=== PATIENT | female | born 1950 | race Caucasian/White ===

== ENCOUNTER → 2017-08-15 | Outpatient (CLI) | payer MEDICARE, MEDICAID ==
--- NOTE | 2017-08-15 12:39 | RAD ---
CT of the chest without contrast, 08/15/2017: History: COPD, smoking history-40 years, current smoker Noncontrast scans were obtained utilizing a low-dose technique. There are multiple small subpleural blebs, particularly in the pulmonary apices. There are a few scattered linear parenchymal scars, including the inferior lingular region on the left. A small parenchymal opacity with a dense central calcification is present posteriorly in the left lower lobe. The appearance is that of a partially calcified scar due to old granulomatous disease. There is also a small calcified granuloma posteriorly in the right upper lobe. No noncalcified pulmonary mass or significant consolidation is seen. There is no evidence of pleural fluid. There is moderate calcific plaquing of the thoracic aorta without evidence of aortic aneurysm. Several coronary artery calcifications are noted. The heart is of normal size. No mediastinal adenopathy is evident. There is an 8 mm nonspecific low-density lesion in the left lobe of the thyroid gland. The right lobe of the thyroid gland is surgically absent. There are mild scattered degenerative changes in the spine. IMPRESSION: 1. Mild scattered subpleural blebs and parenchymal scars. 2. Old healed granulomatous disease in the chest. 3. Calcific plaquing of the aorta and coronary arteries. 4. Small nonspecific left thyroid nodule. 5. Lung BI-RADS Category 1-negative. Routine annual follow-up is suggested. PQRS Compliance Statement: One or more of the following individualized dose reduction techniques were utilized for this examination: 1. Automated exposure control 2. Adjustment of the mA and/or kV according to patient size 3. Use of iterative reconstruction technique
--- NOTE | 2017-08-15 14:42 | RAD ---
DATE: 08/15/2017 EXAM: MAMMO MORENO SCREENING BILATERAL HISTORY: Routine screening COMPARISON: 11/14/2015 This study was interpreted with the benefit of Computerized Aided Detection (CAD). The breast parenchyma is primarily fatty replaced. Breast parenchyma level density A. FINDINGS: 2-D and 3-D tomosynthesis imaging was performed in CC and MLO projections. No new or enlarging breast densities are seen. Benign type calcifications are present. No suspicious microcalcifications have developed. IMPRESSION: Stable mammograms without evidence of malignancy. BI-RADS CATEGORY: 2 BENIGN FINDING(S) RECOMMENDED FOLLOW-UP: 12M 12 MONTH FOLLOW-UP PQRS compliance statement: Patient information was entered into a reminder system with a target due date for the next mammogram. Mammography is a sensitive method for finding small breast cancers, but it does not detect them all and is not a substitute for careful clinical examination. A negative mammogram does not negate a clinically suspicious finding and should not result in delay in biopsying a clinically suspicious abnormality. "Our facility is accredited by the [employer] Mammography Program."
== END | disposition home or self-care (01) ==
LOC: CT 10:40
PROVIDERS: ATTEND Nurse Practitioner Family
DX: Z12.31 Encounter for screening mammogram for malignant neoplasm of breast (principal); J84.10 Pulmonary fibrosis, unspecified; J98.4 Other disorders of lung; I25.10 Atherosclerotic heart disease of native coronary artery without angina pectoris; I70.0 Atherosclerosis of aorta; J44.9 Chronic obstructive pulmonary disease, unspecified; E07.89 Other specified disorders of thyroid; M47.899 Other spondylosis, site unspecified; F17.200 Nicotine dependence, unspecified, uncomplicated; Z90.89 Acquired absence of other organs
CPT/HCPCS: 71250; 77063; G0202; 77067

== ENCOUNTER → 2017-09-02 | Outpatient (CLI) | payer MEDICARE, MEDICAID ==
--- NOTE | 2017-09-02 09:03 | RAD ---
Thyroid ultrasound 09/02/2017 Clinical indication: Thyroid nodule seen on recent CT chest and neck. History of right thyroidectomy approximately 20 years ago. Comparison: CT chest 08/15/2017 Findings: Post surgical changes of prior right hemithyroidectomy. The left lobe of the thyroid measures 4.5 x 1.4 x 1.3 cm. Multiple hypoechoic left thyroid nodules. Dominant discrete hypoechoic nodule measures 0.9 x 0.8 x 0.6 with internal blood flow. Additional hypoechoic thyroid nodule at the mid aspect medially adjacent to the previously described nodule measuring 0.8 x 0.7 x 0.6 cm. There are a few additional subcentimeter hypoechoic nodules in the left lobe. Impression: 1. Prior right hemithyroidectomy. 2. Multiple small hypoechoic left thyroid nodules, largest measuring 0.9 cm, indeterminate. Follow-up thyroid ultrasound in 12 months is recommended.
== END | disposition home or self-care (01) ==
LOC: US 07:43
PROVIDERS: ATTEND Surgery
DX: E04.2 Nontoxic multinodular goiter (principal); E89.0 Postprocedural hypothyroidism
CPT/HCPCS: 76536

== ENCOUNTER → 2017-10-07 | Outpatient (CLI) | payer MEDICARE, OTHER ==
--- NOTE | 2017-10-07 10:40 | RAD ---
Indication: Fall. Time of exam 10:12 AM There appears to be nondisplaced fractures involving the left lateral fifth and sixth ribs. Age of these are indeterminate. No displaced rib fracture is seen. No parenchymal contusion, effusion or pneumothorax is seen. Impression: Age-indeterminate nondisplaced left fifth and sixth rib fractures.
== END | disposition home or self-care (01) ==
LOC: PMG 09:55
PROVIDERS: ATTEND Physician Assistant
DX: S22.42XA Multiple fractures of ribs, left side, initial encounter for closed fracture (principal); W19.XXXA Unspecified fall, initial encounter; Y93.89 Activity, other specified; Y92.89 Other specified places as the place of occurrence of the external cause; Y99.8 Other external cause status
CPT/HCPCS: 71101

== ENCOUNTER 2018-09-07 17:14 | Inpatient (IN) | payer MEDICARE, MEDICAID ==
[~2018-09-07] VITALS: Ht 167.6 cm; Wt 78.6 kg
[2018-09-07] MEDS ORDERED: ASPIRIN 81 MG TAB.CHEW ONE (17:54)
--- NOTE | 2018-09-07 17:54 | RAD ---
CT CODE STROKE HEAD WO Date: 09/07/2018 5:16 PM Clinical Indication: CODE STROKE. PT HAD WEKANESS, BILATERAL BOTH LEGS AT NOON. NUMBNESS IN RIGHT ARM. UNSTEADY GAIT. Comparison: None. Technique: 5 mm axial tomographic images were obtained of the head without contrast. These were viewed on brain and bone windows. Findings: Mild generalized cerebral and cerebellar volume loss. Mild nonspecific periventricular hypoattenuation, most commonly seen with chronic small vessel ischemic disease. Remote appearing right internal capsular lacunar type infarct. No intra- or extra-axial mass or fluid collection. No acute hemorrhage. The ventricles are normal in size, shape, and morphology. The ang-white matter junction is normal. The basilar cisterns are patent. The visualized paranasal sinuses are normal. The visualized portions of the orbits and globes are normal. The mastoid air cells are clear. No aggressive osseous lesion or fracture. Impression: 1. No acute intracranial process. Of note, MRI is more sensitive for acute infarction less than 24 hours in age. 2. Mild cerebral volume loss. Mild chronic small vessel ischemic disease. Remote appearing right internal capsular lacunar type infarct. The findings were reported to CEZAR EDEN at 09/07/2018 5:49 PM. FOR INTERNAL CODING PURPOSES RESULT CODE: (C) PQRS Compliance Statement: One or more of the following individualized dose reduction techniques were utilized for this examination: 1. Automated exposure control 2. Adjustment of the mA and/or kV according to patient size 3. Use of iterative reconstruction technique Electronically signed by: López Caballero MD (09/07/2018 5:51 PM) [facility]
--- NOTE | 2018-09-07 17:57 | PHYS DOC ---
Adult General Chief Complaint Chief Complaint: WEAKNESS/GENERALIZED HPI HPI Patient is a 68-year-old female who presents with complaint of dizziness that started at about 12:00 noon today. She indicates that initially the symptoms were almost like she felt like she was spinning but shortly the dizziness changed and she just characterizes it as if she is completely off balance. She indicates that the dizziness had continued while she had gone to the store earlier today and after she had gotten home. She states that about an hour ago she had developed numbness to her right arm and she was going to try to call 911 but was not able to coordinate movement with her hand because she had lost complete sensation to her hand. She states that she had to dial 911 with her left hand. Upon arrival, patient states that the numbness in her right hand has resolved. Review of Systems Review of Systems Constitutional: Denies fever or chills [] Eyes: Denies change in visual acuity, redness, or eye pain [] Respiratory: Denies cough or shortness of breath [] Cardiovascular: No additional information not addressed in HPI [] Neurologic: Denies headache. Complains of dizziness and right arm numbness. [] All other systems were reviewed and found to be within normal limits, except as documented in this note. Physical Exam Physical Exam Constitutional: Well developed, well nourished, no acute distress, non-toxic appearance. [] HENT: Normocephalic, atraumatic, bilateral external ears normal, oropharynx moist, no oral exudates, nose normal. [] Eyes: PERRLA, EOMI, conjunctiva normal, no discharge. [] Neck: Normal range of motion, no tenderness, supple. There are bilateral carotid bruits. [] Cardiovascular: Regular rate and rhythm.[] Lungs & Thorax: Bilateral breath sounds clear to auscultation [] Abdomen: Bowel sounds normal, soft, no tenderness. [] Skin: Warm, dry, no erythema, no rash. [] Extremities: No tenderness, no cyanosis, no clubbing, ROM intact, no edema. [] Neurologic: Alert and oriented X 3, normal motor function, normal sensory function, no focal deficits noted. [] EKG EKG [] Radiology/Procedures Radiology/Procedures [] Impressions: CT CODE STROKE HEAD WO Date: 09/07/2018 5:16 PM Clinical Indication: CODE STROKE. PT HAD WEKANESS, BILATERAL BOTH LEGS AT NOON. NUMBNESS IN RIGHT ARM. UNSTEADY GAIT. Comparison: None. Technique: 5 mm axial tomographic images were obtained of the head without contrast. These were viewed on brain and bone windows. Findings: Mild generalized cerebral and cerebellar volume loss. Mild nonspecific periventricular hypoattenuation, most commonly seen with chronic small vessel ischemic disease. Remote appearing right internal capsular lacunar type infarct. No intra- or extra-axial mass or fluid collection. No acute hemorrhage. The ventricles are normal in size, shape, and morphology. The ang-white matter junction is normal. The basilar cisterns are patent. The visualized paranasal sinuses are normal. The visualized portions of the orbits and globes are normal. The mastoid air cells are clear. No aggressive osseous lesion or fracture. Impression: 1. No acute intracranial process. Of note, MRI is more sensitive for acute infarction less than 24 hours in age. 2. Mild cerebral volume loss. Mild chronic small vessel ischemic disease. Remote appearing right internal capsular lacunar type infarct. The findings were reported to CEZAR EDEN at 09/07/2018 5:49 PM. Course & Med Decision Making Course & Med Decision Making Pertinent Labs and Imaging studies reviewed. (See chart for details) Patient evaluated by ER medical staff after arriving back from CT for code stroke. Blood work was drawn an IV established. Dr. Cohen was contacted as well as Dr. Kurtz and they have requested CT angiogram of the head and neck prior to admission. Patient was given 325 mg aspirin by mouth. Dragon Disclaimer Dragon Disclaimer This electronic medical record was generated, in whole or in part, using a voice recognition dictation system. Departure Departure: Impression: Primary Impression: CVA (cerebral vascular accident) Disposition: 09 ADMITTED INPATIENT Admitting Physician: Laura Kurtz Condition: GOOD Referrals: DANIELITO MAR (PCP) Problem Qualifiers Primary Impression: CVA (cerebral vascular accident) CVA mechanism: unspecified Qualified Codes: I63.9 - Cerebral infarction, unspecified CEZAR EDEN Jr. DO Sep 07, 2018 17:57
[2018-09-07] MEDS ORDERED: ASPIRIN 325 MG TABLET PO ONE (18:00)
[2018-09-07 18:45] LABS: BASO # 0.1 x10^3/uL (0.0-0.2); BASO % 1 % (0-3); EOS # 0.1 x10^3/uL (0.0-0.7); EOS % 2 % (0-3); HEMATOCRIT 41.5 % (36.0-47.0); HEMOGLOBIN 14.1 g/dL (12.0-15.5); LYMPH # 1.5 x10^3/uL (1.0-4.8); LYMPH % 18 % (24-48); MEAN CORPUSCULAR HEMOGLOBIN 31 pg (25-35); MEAN CORPUSCULAR HGB CONC 34 g/dL (31-37); MEAN CORPUSCULAR VOLUME 92 fL (79-100); MONO # 0.8 x10^3/uL (0.0-1.1); MONO % 10 % (0-9); NEUT # 5.8 x10^3uL (1.8-7.7); NEUT % 69 % (31-73); PLATELET COUNT 260 x10^3/uL (140-400); RED BLOOD COUNT 4.51 x10^6/uL (3.50-5.40); RED CELL DISTRIBUTION WIDTH 13.4 % (11.5-14.5); WHITE BLOOD COUNT 8.3 x10^3/uL (4.0-11.0)
[2018-09-07 18:55] LABS: ALBUMIN 3.3 g/dL (3.4-5.0); ALBUMIN/GLOBULIN RATIO 0.9 (1.0-1.7); CALCIUM 8.7 mg/dL (8.5-10.1); CREATININE 0.9 mg/dL (0.6-1.0); GFR 62.5; POTASSIUM 3.6 mmol/L (3.5-5.1); TOTAL BILIRUBIN 0.3 mg/dL (0.2-1.0); TOTAL PROTEIN 7.1 g/dL (6.4-8.2)
[2018-09-07] MEDS: IV NORMAL SALINE 1,000ML 1,000 ML IV SCH (19:08)
[2018-09-07] MEDS ORDERED: CONTRAST GIVEN MC PRN (19:15)
[2018-09-07] MEDS ORDERED: IOHEXOL 300 MG/ML 75 ML VIAL. IV ONE (19:30)
--- NOTE | 2018-09-07 21:09 | RAD ---
EXAM: CT angiogram of the head and neck with contrast. DATE: 09/07/2018 8:05 PM INDICATION: Possible stroke (suspect cerebellar/posterior infarct), dizziness, headache, arm tingling TECHNIQUE: Axial CTA angiogram of the head and neck was obtained after IV bolus administration of 75 mL Omni 300. MIP Coronal and sagittal reconstructions. Angio package applied including multiplanar reformat reconstructions and 3-D MIP reconstructions. Shaded surface display of 3-D reconstructions also performed. These are all manipulated at separate CT workstation and transferred to the PACS workstation where they are reviewed. COMPARISON: CT head same day, CTA neck dated 10/23/2012. FINDINGS: CTA HEAD: Mild atherosclerosis of the cavernous segments of the bilateral ICAs. The visualized distal internal carotid arteries, anterior and middle cerebral arteries are patent and normal caliber. The distal vertebral arteries, basilar artery, and posterior cerebral arteries are patent and normal caliber. No aneurysm or arteriovenous malformation is seen. The brain parenchyma is normal in attenuation. No intra- or extra-axial mass or fluid collection. No hyperdense intracranial hemorrhage. The ventricles are normal in size and configuration without midline shift. There is normal ang-white matter differentiation. The basal cisterns are patent. The visualized paranasal sinuses are well aerated. The mastoid air cells are clear. The visualized portions of the orbits are normal. No aggressive osseous lesion or fracture. CTA NECK: Right carotid: The right common carotid artery is patent and normal caliber. Mild atherosclerosis at the carotid bulb. No stenosis of the right internal carotid artery per NASCET criteria. The right external carotid artery is patent. Left carotid: The left common carotid artery is patent and normal caliber. Mild atherosclerosis at the carotid bulb. No stenosis of the left internal carotid artery per NASCET criteria. The left external carotid artery is patent. Right vertebral: The right vertebral artery is patent and normal caliber. Left vertebral: The left vertebral artery is patent and normal caliber. Moderate atherosclerosis of the thoracic aorta and its branches. Occlusion of the left subclavian artery just past its origin. The more distal left subclavian artery appears to fill likely via retrograde circulation from the left vertebral artery, although venous bolus streak artifact limits evaluation of the left subclavian and axillary artery. No cervical lymphadenopathy. 0.5 cm left thyroid hypoattenuating lesion. The right lobe of the thyroid appears to be surgically absent. The parotid and submandibular glands are normal. The visualized aerodigestive tract is unremarkable. Moderate multilevel degenerative changes of the visualized spine. Mild paraseptal emphysema. IMPRESSION: 1. No aneurysm. No intracranial arterial stenosis or occlusion. 2. No stenosis of the cervical carotid or vertebral arteries. 3. Occlusion of the left subclavian artery just past its origin. The more distal left subclavian artery appears to fill likely via retrograde circulation from the left vertebral artery (subclavian steal phenomenon). Of note, the proximal left subclavian artery was not occluded on 10/23/2012 CTA neck. Confirmation of directional flow could be obtained with a carotid/neck ultrasound. 4. 0.5 cm left thyroid hypoattenuating lesion may relate to small nodule or cyst. This could be further evaluated with a nonemergent thyroid ultrasound if not previously obtained. PQRS Compliance Statement - Stenosis calculations for CT, MR and conventional angiography are based upon measurement of the distal ICA diameter in accordance with the NASCET methodology. Stenosis calculations for carotid ultrasound studies are derived from validated velocity criteria which are known to correlate with the NASCET methodology. PQRS Compliance Statement: One or more of the following individualized dose reduction techniques were utilized for this examination: 1. Automated exposure control 2. Adjustment of the mA and/or kV according to patient size 3. Use of iterative reconstruction technique Electronically signed by: López Caballero MD (09/07/2018 9:06 PM) [facility]
[2018-09-07 22:08] VITALS: BP 171/97
--- NOTE | 2018-09-07 23:21 | EKG ---
[address] [address] Test Date: 2018-09-07 Test Time: 18:15:27 Pat Name: DIANE FELDER Department: Room: 123 A Gender: F [employer]ling [employer] We[employer] Packer: : 1950 Requested By: CEZAR EDEN Order Number: [id number] Reading MD: Cristiano Newman Measurements Intervals [place] Rate: 75 P: 60 WI: 158 QRS: 7 QRSD: 74 T: 28 QT: 356 QTc: 400 Interpretive Statements SINUS RHYTHM LEFT ATRIAL ABNORMALITY Electronically Signed On 09-11-2018 10:54:39 [employer] SPECIALIST by Cristiano Newman
[2018-09-07] MEDS ORDERED: ALBU2.5V8 IH (23:28)
[2018-09-07] MEDS ORDERED: ERGO500027 PO (23:28)
[2018-09-07] MEDS ORDERED: DULO60CA44 PO (23:28)
[2018-09-07] MEDS ORDERED: LEVO50TA5 PO (23:28)
[2018-09-07] MEDS ORDERED: BUDE10.2 IH (23:28)
[2018-09-07] MEDS ORDERED: LISI-334 PO (23:28)
[2018-09-07] MEDS ORDERED: GABA300C8 PO (23:28)
[2018-09-08] MEDS: IV NORMAL SALINE 1,000ML 1,000 ML IV SCH (00:48)
[2018-09-08 05:51] VITALS: BP 166/83
[2018-09-08] MEDS ORDERED: ALBUTEROL SULFATE 8GM INHALER. IH PRN (06:45)
[2018-09-08] MEDS ORDERED: ALBUTEROL SULFATE 2.5 MG/3 ML NEBU. NEB PRN (07:00)
[2018-09-08] MEDS ORDERED: LEVOTHYROXINE 50 MCG TABLET PO SCH (07:00)
[2018-09-08 07:15] LABS: BASO # 0.1 x10^3/uL (0.0-0.2); BASO % 1 % (0-3); EOS # 0.2 x10^3/uL (0.0-0.7); EOS % 3 % (0-3); HEMATOCRIT 40.5 % (36.0-47.0); HEMOGLOBIN 13.5 g/dL (12.0-15.5); LYMPH # 1.5 x10^3/uL (1.0-4.8); LYMPH % 22 % (24-48); MEAN CORPUSCULAR HEMOGLOBIN 31 pg (25-35); MEAN CORPUSCULAR HGB CONC 33 g/dL (31-37); MEAN CORPUSCULAR VOLUME 92 fL (79-100); MONO # 0.7 x10^3/uL (0.0-1.1); MONO % 10 % (0-9); NEUT # 4.7 x10^3uL (1.8-7.7); NEUT % 65 % (31-73); PLATELET COUNT 243 x10^3/uL (140-400); RED BLOOD COUNT 4.39 x10^6/uL (3.50-5.40); RED CELL DISTRIBUTION WIDTH 13.2 % (11.5-14.5); WHITE BLOOD COUNT 7.2 x10^3/uL (4.0-11.0)
[2018-09-08 07:23] LABS: CALCIUM 8.5 mg/dL (8.5-10.1); CREATININE 0.7 mg/dL (0.6-1.0); GFR 83.5; POTASSIUM 3.9 mmol/L (3.5-5.1)
[2018-09-08] MEDS ORDERED: BUDESONIDE 0.5 MG/2 ML NEBU NEB SCH (08:00)
[2018-09-08] MEDS ORDERED: ALBUTEROL SULFATE 2.5 MG/3 ML NEBU. NEB SCH (08:00)
[2018-09-08] MEDS ORDERED: ASPIRIN ENTERIC COATED 81 MG TABLET.DR. PO SCH (08:00)
[2018-09-08] MEDS ORDERED: GABAPENTIN 300 MG CAPSULE. PO SCH (09:00)
[2018-09-08] MEDS ORDERED: LISINOPRIL 20 MG TABLET PO SCH (09:00)
[2018-09-08] MEDS ORDERED: DULoxetine HCL 60 MG CAPSULE.DR PO SCH (09:00)
[2018-09-08] MEDS ORDERED: CHOLECALCIFEROL (VITAMIN D3) 50,000 UNIT CAPSULE PO SCH (09:00)
[2018-09-08] MEDS ORDERED: NON FORMULARY ITEM (Budesonide/Formoterol Fumarate (Symbicort 160-4.5 Mcg Inhaler) 2 PUFF) IH SCH (09:00)
[2018-09-08 11:50] VITALS: BP 158/70
--- NOTE | 2018-09-08 12:19 | SSS ---
ADMIT DATE: 09/08/2018 HISTORY OF PRESENT ILLNESS: The patient is a 68-year-old female patient, who came to the Emergency Room with a complaint that she has started complaining of dizziness that started around 12:00 noon yesterday. She indicated that initially her symptoms were almost like she felt like she was spinning and shortly thereafter the dizziness changed. She just characterized it as if she is completely off balance. She indicates that the dizziness had continued while she had gone to the store earlier today and after getting home she states that she that about an hour before she arrived to the Emergency Room she had developed numbness to her right arm and she was going to try to call 911, but was not able to coordinate movement with her hand because she had lost complete sensation to her hand. She said she dialed 911 using her left hand and on arrival the patient stated that numbness of her right hand has resolved. She was extensively investigated in the Emergency Room and she has had CT scan of the head, which basically showed no acute intracranial process, mild cerebral volume loss, mild chronic small vessel ischemic disease and remote appearing right internal capsular lacunar type infarct. She was out of the window for TPA and she did have a CT angio of the head and neck and impressions showed that she has no aneurysm, no intracranial arterial stenosis or occlusion, no stenosis of the cervical, carotid or vertebral arteries, occlusion of the left subclavian artery, just in origin. The more distal left subclavian artery appears to fill likely via retrograde circulation from the left vertebral artery. She probably has subclavian steal syndrome. Of note, the proximal left subclavian artery was not occluded on 10/23/2012. CT angio of the neck confirmation that external flow could be obtained with the carotid neck ultrasound. The patient has 0.5 cm left thyroid hypoattenuation lesion may be related to small nodule or cyst. This could be further evaluated with a manual nonemergent thyroid ultrasound if not previously obtained. The patient was admitted for further evaluation, was seen by Dr. Cohen, who recommended transferring her to [facility] for an MRI and further evaluation as well as perhaps angioplasty and stent deployment to her left subclavian artery stenosis. PAST MEDICAL HISTORY: Significant for hypertension, hyperlipidemia, hypothyroidism, chronic obstructive pulmonary disease, osteoarthritis, lumbar spinal stenosis. She had history of diverticulosis and bilateral axillary abscesses, requiring incision and drainage. PAST SURGICAL HISTORY: Significant for thyroidectomy, incision and drainage of right and left axillary abscesses. She has unilateral salpingo-oophorectomy for ectopic . She has 2 breast biopsy, tubal ligation, and colonoscopy. ALLERGIES: She has no known drug allergies. MEDICATIONS: She is currently on following medications: She is on albuterol sulfate 2 puffs every 4 hours, lisinopril 20 mg once a day, gabapentin 300 mg twice a day, duloxetine 60 mg once a day. She is on Symbicort 160/4.5 two puffs twice a day, levothyroxine sodium 50 mcg once a day, ergocalciferol vitamin D2 50,000 international units twice a day. FAMILY HISTORY: She has 2 brothers, 1 is still alive and has Parkinson's disease at age of 65, one at the age of 63 because of liver cancer. She has 2 sisters, one of them is 60 years old and has gastroesophageal reflux disease. Her younger sister at age of 57 is healthy. Her father at age of 78 because of lung cancer and her mother at age of 76 because of septic shock while at the intermediate. SOCIAL HISTORY: She is . She has one daughter and one son. She smokes 1-1/2 pack a day for almost 25 years. She does drink alcohol. 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 She lives alone and basically independent. She does not require any assistance or assistive devices. She has been driving her car up until yesterday. REVIEW OF SYSTEMS: She did have bilateral cataract extraction, but denied any glaucoma or macular degeneration. Denied any earache, tinnitus or sensorineural deafness. Denied any nosebleeds, stuffy nose or postnasal drip. Denied any sore throat, sore tongue, toothache, hoarseness of voice or difficulty swallowing. Denied any nausea, vomiting, diarrhea or constipation. Denied any hematemesis, melena or hematochezia. Denied any dysuria, frequency or hematuria. Denied any chest pain, shortness of breath, orthopnea, paroxysmal nocturnal dyspnea. Denied any cough, phlegm or hemoptysis. Denied any chills, rigors or fever. Did complain obviously of dizziness and marked loss of balance. PHYSICAL EXAMINATION Balance: GENERAL: When I saw her, she looked well and was clearly in no apparent respiratory distress. No pallor, jaundice or cyanosis. No lymphadenopathy, no thyromegaly. No jugular venous distension. No lower limb edema. VITAL SIGNS: Her heart rate was 83, blood pressure was 157/90, temperature was 98.1, respiratory rate 20, and oxygen saturation was 96%. HEAD, EYES, EARS, NOSE AND THROAT: Showed normocephalic, atraumatic. NECK: Supple. HEART: Showed normal first and second heart sounds. No gallop, rub or murmur. CHEST: Clear to auscultation. No crepitation or rhonchi. ABDOMEN: Distended, soft, nontender. NEUROLOGIC: She is awake, alert, responding appropriately. All cranial nerves intact. She always has weakness of the right upper and right lower extremity. LABORATORY DATA: Showed her white cell count to be 7200, hemoglobin 13.5, hematocrit 40, MCV 92, and platelet count of 243,000 with normal manual differential. Her serum sodium was 137, potassium 3.6, chloride 99, bicarbonate 30, anion gap of 8, BUN 26, creatinine 0.9, estimated GFR was 62 mL per minute. Her glucose was 75, calcium was 8.7. Total bilirubin, AST, ALT, alkaline phosphatase were normal. Total protein was 7.3, albumin 3.3. Her prothrombin time was 9.6, INR of 1, aPTT was 27. Her CT scan of the head showed that no acute intracranial process. Of note, MRI is more sensitive for acute infarction that is less than 24-hour in age. She has mild cerebral volume loss, mild chronic small vessel ischemic disease, remote appearing right internal carotid lacunar infarct. The CT angio of the head and neck showed that there is no aneurysm and no intracranial arterial stenosis or occlusion, no stenosis of the cervical carotid or vertebral arteries. The patient has occlusion of her left subclavian artery just past its origin. The more distal left subclavian artery appears to be filled likely via retrograde circulation from the left vertebral artery and the patient displays subclavian steal phenomenon. Of note, the proximal left subclavian artery was not occluded on 10/23/2012 CT angio of the neck. ASSESSMENT AND PLAN: Given this finding, she was seen by Dr. Cohen and he recommended transferring her to [facility] to do an MRI and also to consult the Cardiology for perhaps angioplasty and stent deployment to her left subclavian artery. GABRIEL ECHEVARRIA MD DR: LIANE/hawk JOB#: [id number] / [id number]
--- NOTE | 2018-09-10 09:39 | CONS ---
DATE OF CONSULTATION: 09/08/2018 sNEUROLOGIC CONSULTATION REFERRING PHYSICIAN: Dr. Kurtz. REASON FOR CONSULTATION: Dizziness, numbness, and off balance. HISTORY OF PRESENT ILLNESS: This is a 68-year-old right-handed female, who was admitted through the Emergency Room on 09/07/2018, after she presented with a sudden onset of severe dizziness described as spinning of the head along with intermittent numbness of the right hand. The symptoms started around noon. She stated she has had intermittent weakness of the right side. The patient stated she has had intermittent weakness of the right lower extremity and she related that to chronic lower back pain and osteoarthritis of the lumbar spine along with spinal stenosis. However, the patient was able to go to the local store, but she felt more numbness and tingling of the right upper extremity and she was off balance. According to the patient, she was able to drive. According to the patient, she was able to call 911 using her left hand as she could not do it on the right hand because of lack of sensation. On arrival to Emergency Room, the patient stated her dizziness continued and described as off balance, but the numbness of the right hand has resolved. She denies headaches, visual disturbances, nausea, vomiting, chest pain, shortness of breath or palpitation, dysarthria or dysphagia. Initial nonenhanced head CT scan revealed evidence of cerebral atrophy with chronic small vessel ischemic changes and remote right internal capsular lacunar infarct. A CT angio of the head and neck revealed occlusion of the left subclavian artery just past its origin. There was no evidence of a cerebral aneurysm or significant occlusion or significant stenosis of the carotid arteries. PAST MEDICAL HISTORY: Significant for lumbar spinal stenosis and intermittent pain and weakness of the right lower extremity, hypertension, hyperlipidemia, hypothyroidism, COPD due to excessive smoking in the past, diverticulosis, and bilateral axillary abscesses. PAST SURGICAL HISTORY: Significant for thyroidectomy, incision and drainage of the right and left axillary abscesses, abdominal hysterectomy for ectopic , and tubal ligation. SOCIAL HISTORY: The patient is . She has one daughter and one son. She is a heavy smoker of 1 to 1-1/2 packs a day almost of 25 years' duration. She drinks alcohol. She denies illegal drug use. FAMILY HISTORY: The patient has 2 brothers, 1 alive brother at the age of 65 and has Parkinson disease and the other brother from liver cancer at age of 63. She has 2 sisters relatively in healthy condition. Father at the age of 78 from lung cancer and mother at the age of 76 from sepsis. REVIEW OF SYSTEMS: A 10-point review of system was performed and consistent with unsteadiness and weakness and intermittent numbness and weakness of the right upper and lower extremities, otherwise as mentioned above in the history of present illness. CURRENT HOME MEDICATIONS: Albuterol inhaler, Symbicort inhaler, Cymbalta 60 mg daily, vitamin D, gabapentin 300 mg b.i.d., levothyroxine 50 mcg daily, and lisinopril 20 mg daily. ALLERGIES: No known drug allergies. PHYSICAL EXAMINATION: GENERAL: Well-developed and well-nourished female, not in acute distress. She weighs 173 pounds. VITAL SIGNS: Blood pressure 166/83, respiratory rate 18, pulse is 87 and regular, temperature 98, and oxygen saturation 93% on room air. HEENT: Normocephalic and atraumatic, otherwise unremarkable. NECK: Supple. Negative for carotid bruit, lymphadenopathy, JVD or thyromegaly. LUNGS: Clear to A and P. CARDIOVASCULAR: Regular rate and rhythm, normal S1, S2. There is no S3, S4, or murmur. ABDOMEN: Soft. Bowel sounds positive. EXTREMITIES: Negative for cyanosis, clubbing, pitting edema. NEUROLOGIC: MENTAL STATUS: The patient is alert and oriented x 3. The speech is fluent. There is no language dysfunction. Memory, judgment, and abstract thinking are normal. The patient denies hallucination or delusion. CRANIAL NERVES: Visual wesley are full. The pupils are equal and reactive to light and accommodation. The extraocular movements are intact. There is no nystagmus. There is no facial motor or sensory deficit. Hearing is intact bilaterally. The palate is elevated symmetrically. Sternocleidomastoid muscles are powerful bilaterally. The patient shrugs her shoulders symmetrically and protrudes her tongue in the midline without fasciculation or atrophy. MOTOR: No focal muscle bulk was seen. The tone is normal. The strength is 4/5 in the right upper and lower extremities with pronation of the right upper extremity along with mild right facial asymmetry. The strength elsewhere was 5/5 throughout. SENSORY: Examination revealed dense, diminished pin prick and light touch senses over the right face and leg compared to those on the left side. Deep tendon reflexes were symmetric and hypoactive with absent Achilles responses. Gait: The patient has unsteady stance. LABORATORY DATA: CBC revealed white cells of 7200, hemoglobin 13.5, hematocrit 40.5, and platelet count of 243,000. Chemistry revealed sodium of 141, potassium 3.9, chloride 106, CO2 of 25, BUN 16, creatinine 0.7, glucose 90, and calcium 8.5. Lipid profile revealed high cholesterol of 216 and LDL of 149 with HDL of 52. PT is 9.6. INR is 1. RECOMMENDATIONS: 1. Dense right hemiparesis and hemisensory deficit, likely due to acute left hemispheric infarct and possible thalamic infarct with multiple risk factors for stroke including age, hypertension, hyperlipidemia and smoking. 2. Left subclavian occlusion and subclavian steal. 3. Multiple medical problems include hypertension, hyperlipidemia, chronic obstructive pulmonary disease, osteoarthritis and spinal stenosis. RECOMMENDATION: 1. Brain MRI. 2. Start the patient on aspirin. 3. Cardiology consult. 4. PT/OT evaluation. 5. Smoking cessation and treat the underlying hyperlipidemia. M Arash MOMIN MD DR: RAMOS/hawk JOB#: [id number] / [id number]
== END 2018-09-08 13:20 | disposition short-term general hospital (02) | DRG 299 ==
LOC: ER 17:14 → 1 SOUTH 21:50
PROVIDERS: ADMIT Internal Medicine; ATTEND Internal Medicine
DX: I82.B12 Acute embolism and thrombosis of left subclavian vein (principal); E43 Unspecified severe protein-calorie malnutrition; E78.5 Hyperlipidemia, unspecified; I70.8 Atherosclerosis of other arteries; F17.200 Nicotine dependence, unspecified, uncomplicated; I10 Essential (primary) hypertension; E89.0 Postprocedural hypothyroidism; J44.9 Chronic obstructive pulmonary disease, unspecified; Z80.0 Family history of malignant neoplasm of digestive organs; Z90.721 Acquired absence of ovaries, unilateral; Z82.0 Family history of epilepsy and other diseases of the nervous system; Z80.1 Family history of malignant neoplasm of trachea, bronchus and lung; Z86.73 Personal history of transient ischemic attack (TIA), and cerebral infarction without residual deficits; Z79.899 Other long term (current) drug therapy; Z90.710 Acquired absence of both cervix and uterus; Z98.51 Tubal ligation status
CPT/HCPCS: 36415; 70450; 70496; 70498; 80048; 80053; 80061; 84484; 85025; 85610; 85730; 93005; 94640; 99406; J7613; J7626; Q9967; 99285-25; J7030

== ENCOUNTER → 2019-04-13 | Outpatient (CLI) | payer MEDICARE, MEDICAID ==
[~2019-04-13] MED LIST: ALBU2.5V8 IH; BUDE10.2 IH; DULO60CA44 PO; ERGO500027 PO; GABA300C8 PO; LEVO50TA5 PO; LISI-334 PO
--- NOTE | 2019-04-13 11:27 | RAD ---
DATE: 04/13/2019 EXAM: MAMMO MORENO SCREENING BILATERAL HISTORY: Routine screening COMPARISON: 08/15/2017 This study was interpreted with the benefit of Computerized Aided Detection (CAD). Breast Density: FATTY The breast parenchyma is primarily fatty replaced. Breast parenchyma level density A. FINDINGS: 2-D and 3-D tomosynthesis imaging was performed in CC and MLO projections. No new or enlarging breast densities are seen. Benign type calcifications are present. No suspicious microcalcifications have developed. IMPRESSION: Stable mammograms without evidence of malignancy. BI-RADS CATEGORY: 2 BENIGN FINDING(S) RECOMMENDED FOLLOW-UP: 12M 12 MONTH FOLLOW-UP PQRS compliance statement: Patient information was entered into a reminder system with a target due date for the next mammogram. Mammography is a sensitive method for finding small breast cancers, but it does not detect them all and is not a substitute for careful clinical examination. A negative mammogram does not negate a clinically suspicious finding and should not result in delay in biopsying a clinically suspicious abnormality. "Our facility is accredited by the [employer] Mammography Program."
== END | disposition home or self-care (01) ==
LOC: MAMMO 09:34
PROVIDERS: ATTEND Physician Assistant
DX: Z12.31 Encounter for screening mammogram for malignant neoplasm of breast (principal); N64.89 Other specified disorders of breast
CPT/HCPCS: 77063; 77067

== ENCOUNTER 2019-04-20 00:03 | Emergency (ER) | payer MEDICARE, MEDICAID ==
[~2019-04-20] VITALS: Ht 167.6 cm; Wt 77.4 kg
--- NOTE | 2019-04-20 00:24 | PHYS DOC ---
Past History Past Medical History: Anxiety, Arthritis, Asthma, COPD, CVA, High Cholesterol, Hypertension Smoking: Cigarettes Alcohol Use: None Drug Use: None Adult General HPI HPI Patient is a 68-year-old female who presents to the emergency department for evaluation. The patient states that she had a stroke in August, which affected her balance. She states she just recently began having some gradual improvement in her balance to the point that she was able to walk without her walker, but she still has some balance issues. She states that she was walking up the stairs, and felt herself losing her balance as she tried to reach and grabbed the railing, and twisted her right leg in doing so and is complaining of pain in her right groin area. She states she was unable to bear weight and had to be helped off of the floor by her son. She denies any other injuries or painful areas, denies any headache or head injury, neck pain, new back pain (she does have chronic back pain), numbness, or weakness. She denies any other extremity injury. Movement and palpation of the affected area in her right groin and hip area worsen her pain. There are no alleviating factors to her symptoms. The patient states that prior to the fall she did not have any new dizziness, lightheadedness, or sense of rotation, and denies any vision changes or other neurological abnormalities. The patient takes a baby aspirin daily, no other blood thinners. Review of Systems Review of Systems Constitutional: Denies fever or chills [] Eyes: Denies change in visual acuity, redness, or eye pain [] HENT: Denies nasal congestion or sore throat [] Respiratory: Denies cough or shortness of breath [] Cardiovascular: The patient denies any shortness of breath, chest pain, palpitations, or orthopnea [] GI: Denies abdominal pain, nausea, vomiting, bloody stools or diarrhea [] : Denies dysuria or hematuria [] Musculoskeletal: Denies back pain or joint pain, except as noted in the history of present illness. [] Integument: Denies rash or skin lesions [] Neurologic: Denies headache, focal weakness or sensory changes [] Endocrine: Denies polyuria or polydipsia [] All other systems were reviewed and found to be within normal limits, except as documented in this note. Allergies Allergies Allergies Coded Allergies Type Severity Reaction Last Updated Verified No Known Drug Allergies 09/07/18 No Physical Exam Physical Exam PHYSICAL EXAM: CONSTITUTIONAL: Well developed, well nourished HEAD: normocephalic, atraumatic EENT: PERRL, EOMI. Conjunctivae normal color, sclerae non-icteric; moist mucous membranes. NECK: Supple, non-tender; no meningismus. LUNGS: Lungs CTA, breathing even and unlabored. Normal air movement. HEART: Regular rate and rhythm, no murmur CHEST: No deformity; non-tender ABDOMEN: The abdomen is soft, and non-tender, no masses or bruits. EXTREM: There is tenderness to palpation in the right hip, anteriorly and laterally, with limited range of motion secondary to pain. The remainder the hips and pelvis, is relatively nontender, the mid and distal femur on the right are nontender, and the remainder the extremities are atraumatic, with Normal ROM; no deformity, no calf tenderness. Normal pulses palpable in all extremities. There is no pedal edema. SKIN: No rash; no diaphoresis NEURO: Alert; normal speech and cognition; CN's grossly intact; strength grossly intact without focal deficit. BACK: No CVA TTP. EKG EKG [] Radiology/Procedures Radiology/Procedures [] Course & Med Decision Making Course & Med Decision Making Pertinent Labs and Imaging studies reviewed. (See chart for details) []ER physician preliminary hip x-ray interpretation: Subcapital right hip fracture, acute. 1:15 AM: The patient's condition remains stable. She is agreeable to transfer to [facility] for definitive evaluation. Hospitalist at that facility will be contacted, preoperative labs will be obtained, the patient is comfortable after pain medication. Patient accepted by Dr. Abraham Mcbride Disclaimer Rae Disclaimer This electronic medical record was generated, in whole or in part, using a voice recognition dictation system. Departure Departure: Impression: Primary Impression: Subcapital fracture of right hip Disposition: XFER SHT-TRM HOSP Condition: STABLE Referrals: DANIELITO MAR (PCP) VICKIE SARAH MD Apr 20, 2019 00:24
[2019-04-20] MEDS ORDERED: HYDROmorphone PF 2 MG/ML VIAL IV ONE (01:00)
[2019-04-20] MEDS ORDERED: diazePAM 5 MG TABLET PO ONE (01:00)
[2019-04-20 01:39] LABS: BASO # 0.1 x10^3/uL (0.0-0.2); BASO % 1 % (0-3); EOS # 0.2 x10^3/uL (0.0-0.7); EOS % 2 % (0-3); HEMATOCRIT 39.1 % (36.0-47.0); HEMOGLOBIN 13.3 g/dL (12.0-15.5); LYMPH # 1.2 x10^3/uL (1.0-4.8); LYMPH % 11 % (24-48); MEAN CORPUSCULAR HEMOGLOBIN 32 pg (25-35); MEAN CORPUSCULAR HGB CONC 34 g/dL (31-37); MEAN CORPUSCULAR VOLUME 93 fL (79-100); MONO # 0.8 x10^3/uL (0.0-1.1); MONO % 8 % (0-9); NEUT # 8.5 x10^3uL (1.8-7.7); NEUT % 79 % (31-73); PLATELET COUNT 279 x10^3/uL (140-400); RED BLOOD COUNT 4.21 x10^6/uL (3.50-5.40); RED CELL DISTRIBUTION WIDTH 13.9 % (11.5-14.5); WHITE BLOOD COUNT 10.8 x10^3/uL (4.0-11.0)
[2019-04-20 01:45] LABS: CALCIUM 9.3 mg/dL (8.5-10.1); CREATININE 0.9 mg/dL (0.6-1.0); GFR 62.5
[2019-04-20 02:50] VITALS: BP 133/60
[2019-04-20] MEDS ORDERED: HYDROmorphone PF 1 MG/ML DISP.SYRIN IV ONE (03:00)
[2019-04-20] MEDS ORDERED: NICOTINE 21MG PATCH. TD ONE (03:00)
--- NOTE | 2019-04-20 04:23 | RAD ---
EXAM: AP pelvis, AP and lateral views right hip DATE: 04/20/2019 12:14 AM INDICATION: Right hip pain, fall COMPARISON: No Prior FINDINGS/ IMPRESSION: 1. Complete subcapital right femoral neck fracture with proximal migration of the femoral shaft component. 2. Decreased bone mineral density. 3. Moderate associated soft tissue swelling. 4. Lower lumbar spine degenerative changes are seen. Electronically signed by: Hawk Ayala MD (04/20/2019 4:20 AM) [id number]
== END 2019-04-20 02:57 | disposition short-term general hospital (02) ==
LOC: ER 00:03
DX: S72.011A Unspecified intracapsular fracture of right femur, initial encounter for closed fracture (principal); M47.896 Other spondylosis, lumbar region; G89.29 Other chronic pain; F41.9 Anxiety disorder, unspecified; M19.90 Unspecified osteoarthritis, unspecified site; J44.9 Chronic obstructive pulmonary disease, unspecified; E78.00 Pure hypercholesterolemia, unspecified; I10 Essential (primary) hypertension; F17.210 Nicotine dependence, cigarettes, uncomplicated; Z86.73 Personal history of transient ischemic attack (TIA), and cerebral infarction without residual deficits; W10.8XXA Fall (on) (from) other stairs and steps, initial encounter; Y93.01 Activity, walking, marching and hiking; Y92.89 Other specified places as the place of occurrence of the external cause; Y99.8 Other external cause status
CPT/HCPCS: 36415; 73502; 80048; 85025; 85610; 96374; 96376; 99285; J1170

== ENCOUNTER → 2019-05-07 | Outpatient (CLI) | payer MEDICARE, MEDICAID ==
[2019-04-20 02:50] VITALS: BP 133/60
--- NOTE | 2019-05-07 17:03 | RAD ---
AP view of the pelvis and two-view study of the right hip Clinical indications: Right hip fracture and postoperative study. FINDINGS: A right hip hemiarthroplasty is evident which is well aligned. The femoral stem is located centrally within the intramedullary canal of the proximal right femur in both views. No acute fracture or lytic process or diastases is seen. Levoscoliosis and degenerative lumbar spondylosis is seen. IMPRESSION: Right hip hemiarthroplasty. Electronically signed by: Jose Larose MD (05/07/2019 5:00 PM) [id number]
== END | disposition home or self-care (01) ==
LOC: DXRAD 11:36
PROVIDERS: ATTEND Orthopaedic Surgery Sports Medicine
DX: M47.816 Spondylosis without myelopathy or radiculopathy, lumbar region (principal); M41.86 Other forms of scoliosis, lumbar region; Z96.641 Presence of right artificial hip joint
CPT/HCPCS: 73502

== ENCOUNTER → 2019-05-29 | Outpatient (CLI) | payer MEDICARE, MEDICAID ==
[~2019-05-29] MED LIST changes: -DULO60CA44 PO; +DULO60CA98 PO
--- NOTE | 2019-05-29 16:13 | RAD ---
Indication: Postmenopausal screening for osteoporosis. COMPARISON: None available. Bone Density: -BMD: (g/cm2) - AP Spine Total (L1-L4).......... 1.301. - Total left Hip................. 0.847. Neck: 0.799 T-Score: - AP Spine Total (L1-L4)......... 1.0. - Total left Hip................. -0.9. Neck: -1.2 Z-Score: - AP Spine Total (L1-L4).......... 2.3. - Total left Hip................. 0.2. World Health Organization criteria for BMD interpretation classify patients as Normal (T-score at or above -1.0), Osteopenic (T-score between -1.0 and -2.5), or Osteoporotic (T-score at or below -2.5). Impression: 1. AP Spine Total L1-L4--- normal. 2. Total left Hip--- normal. Neck: Osteopenia. Electronically signed by: Jose Larose MD (05/29/2019 4:10 PM) [place] [id number]
== END | disposition home or self-care (01) ==
LOC: DXRAD 09:16
PROVIDERS: ATTEND Physician Assistant
DX: S72.001A Fracture of unspecified part of neck of right femur, initial encounter for closed fracture (principal); M85.88 Other specified disorders of bone density and structure, other site; X58.XXXA Exposure to other specified factors, initial encounter; Y93.89 Activity, other specified; Y92.89 Other specified places as the place of occurrence of the external cause; Y99.8 Other external cause status
CPT/HCPCS: 77080

== ENCOUNTER → 2019-11-12 | Outpatient (CLI) | payer MEDICARE ==
--- NOTE | 2019-11-12 11:03 | CARD ---
MR#: [id number] Date of Study: 11/12/2019 Ordering Physician: EDWINA PLAZA, Referring Physician: EDWINA PLAZA, Tech: Janna Lala [facility] APPROVED REPORT EXAM: Two-dimensional and M-mode echocardiogram with Doppler and color Doppler. Other Information Quality : AverageHR: 97bpm Rhythm : NSRTechnically limited study due to smoking. INDICATION CVA/TIA 2D DIMENSIONS Left Atrium(2D)3.0 (1.6-4.0cm)IVSd1.0 (0.7-1.1cm) Aortic Root(2D)2.8 (2.0-3.7cm)LVDd4.3 (3.9-5.9cm) LVOT Diameter2.0 (1.8-2.4cm)PWd0.8 (0.7-1.1cm) LVDs3.1 (2.5-4.0cm)FS (%) 27.9 % SV45.0 mlLVEF(%)54.3 (>50%) Aortic Valve AoV Peak Da.123.1cm/sAoV VTI18.2cm AO Peak GR.6.1mmHgLVOT Peak Da.101.3cm/s LVOT VTI 17.40cmAO Mean GR.4mmHg JOSE (VMAX)2.99dh1AWQ (VTI)2.88cm2 Mitral Valve MV E Kewhmgnn69.8cm/sMV DECEL XOJN472ld MV A Onqgqxre92.3cm/sE/A Ratio0.6 Pulmonary Valve PV Peak Rapwiasx95.6cm/sPV Peak Grad.3mmHg Tricuspid Valve TR P. Zwodehxn034jb/sRAP WXNRRSRK7sbMc TR Peak Gr.72eaZmJBVB87srDd LEFT VENTRICLE The left ventricle is normal size. There is normal left ventricular wall thickness. The left ventricu lar systolic function is normal. The Ejection Fraction is 55-60%. There is normal LV segmental wall m otion. Transmitral Doppler flow pattern is Grade I-abnormal relaxation pattern. RIGHT VENTRICLE The right ventricle is normal size. There is normal right ventricular wall thickness. The right ventr icular systolic function is normal. ATRIA The left atrium size is normal. The right atrium size is normal. The interatrial septum is intact wit h no evidence for an atrial septal defect or patent foramen ovale as noted on 2-D or Doppler imaging. AORTIC VALVE The aortic valve is trileaflet. The aortic valve is normal in structure and function. Doppler and Col or Flow revealed no significant aortic regurgitation. There is no significant aortic valvular stenosi s. MITRAL VALVE The mitral valve is thickened but opens well. There is no evidence of mitral valve prolapse. There is no mitral valve stenosis. Doppler and Color Flow revealed no mitral valve regurgitation noted. TRICUSPID VALVE The tricuspid valve is normal in structure and function. Doppler and Color Flow revealed trace tricus pid regurgitation. The PA pressure was estimated at 25 mmHg. There is no tricuspid valve prolapse or vegetation. There is no tricuspid valve stenosis. PULMONIC VALVE The pulmonic valve is not well visualized. GREAT VESSELS The aortic root is normal in size. The ascending aorta is normal in size. The IVC is normal in size a nd collapses >50% with inspiration. PERICARDIAL EFFUSION There is no evidence of significant pericardial effusion. Critical Notification Critical Value: No <Conclusion> The left ventricular systolic function is normal. The Ejection Fraction is 55-60%. There is normal LV segmental wall motion. Transmitral Doppler flow pattern is Grade I-abnormal relaxation pattern. Trace tricuspid regurgitation. The PA pressure was estimated at 25 mmHg. There is no evidence of significant pericardial effusion. Signed by : Cristiano Newman, Electronically Approved : 11/12/2019 11:03:09
== END | disposition home or self-care (01) ==
LOC: ECHO 09:37
PROVIDERS: ATTEND Internal Medicine Cardiovascular Disease
DX: I63.9 Cerebral infarction, unspecified (principal)
CPT/HCPCS: 93306

== ENCOUNTER → 2019-12-14 | Outpatient (CLI) | payer MEDICARE ==
[~2019-12-14] MED LIST changes: +0.9 % SODIUM CHLORIDE 10 ML VIAL ONE; +HYDROcodone/APAP 5/325MG 1 TAB TABLET PO PRN; +IOHEXOL 300 MG/ML 50 ML VIAL. ONE; +LIDOCAINE 1% PF 30 ML VIAL. ONE; +methylPREDNISolone ACETATE 80 MG/ML VIAL. ONE
[2019-12-14 13:20] VITALS: BP 97/95
== END ==
LOC: SURG 12:19
PROVIDERS: ATTEND Anesthesiology Pain Medicine
DX: M54.16 Radiculopathy, lumbar region (principal); Z79.82 Long term (current) use of aspirin
CPT/HCPCS: 62323; J1040; J2001; Q9967

== ENCOUNTER → 2021-06-03 | Day surgery (SDC) | payer MEDICARE ==
[~2021-06-03] MED LIST changes: -0.9 % SODIUM CHLORIDE 10 ML VIAL ONE; +BUPIVACAINE MPF 0.25% 10 ML VIAL. ONE; +DEXAMETHASONE SOD PHOS 10 MG/ML VIAL. ONE; -HYDROcodone/APAP 5/325MG 1 TAB TABLET PO PRN; -LISI-334 PO; +LISI20TA18 PO; -methylPREDNISolone ACETATE 80 MG/ML VIAL. ONE
[2021-06-03 14:57] VITALS: BP 133/76
== END ==
LOC: SURG 14:22
PROVIDERS: ATTEND Anesthesiology
DX: M54.16 Radiculopathy, lumbar region (principal); M48.061 Spinal stenosis, lumbar region without neurogenic claudication; M47.816 Spondylosis without myelopathy or radiculopathy, lumbar region; M54.5 Low back pain
CPT/HCPCS: 64483; 64484; J1100; J3490; Q9967

== ENCOUNTER → 2021-07-01 | Day surgery (SDC) | payer MEDICARE ==
[~2021-07-01] MED LIST changes: -BUPIVACAINE MPF 0.25% 10 ML VIAL. ONE; -DEXAMETHASONE SOD PHOS 10 MG/ML VIAL. ONE; -IOHEXOL 300 MG/ML 50 ML VIAL. ONE; -LIDOCAINE 1% PF 30 ML VIAL. ONE
[2021-07-01 13:00] VITALS: BP 132/63
== END ==
LOC: SURG 12:41
PROVIDERS: ATTEND Anesthesiology
DX: M54.16 Radiculopathy, lumbar region (principal); M54.5 Low back pain; Z79.899 Other long term (current) drug therapy; Z98.890 Other specified postprocedural states
CPT/HCPCS: 99214; G0463

== ENCOUNTER → 2021-09-29 | Outpatient (CLI) | payer MEDICARE ==
[2021-07-01 13:00] VITALS: BP 132/63
--- NOTE | 2021-09-29 17:51 | CARD ---
MR#: [id number] Date of Study: 09/29/2021 Ordering Physician: DEWINA PLAZA, Referring Physician: EDWINA PLAZA, Tech: Graciela Herrera, [facility] APPROVED REPORT EXAM: Two-dimensional and M-mode echocardiogram with Doppler and color Doppler. Other Information Quality : AverageHR: 80bpm INDICATION COPD CVA/TIA RISK FACTORS Hypertension Hyperlipidemia Smoking 2D DIMENSIONS RVDd3.1 (2.9-3.5cm)Left Atrium(2D)3.1 (1.6-4.0cm) IVSd1.0 (0.7-1.1cm)Aortic Root(2D)3.0 (2.0-3.7cm) LVDd4.2 (3.9-5.9cm)LVOT Diameter2.1 (1.8-2.4cm) PWd1.0 (0.7-1.1cm)LVDs2.1 (2.5-4.0cm) FS (%) 50.8 %SV63.7 ml LVEF(%)82.5 (>50%) Aortic Valve AoV Peak Da.146.5cm/sAoV VTI31.5cm AO Peak GR.8.6mmHgLVOT Peak Da.109.3cm/s LVOT VTI 23.32cmAO Mean GR.4mmHg JOSE (VMAX)2.68go8QMN (VTI)2.49cm2 Mitral Valve MV E Hoaelbnk37.1cm/sMV E Peak Gr.4mmHg MV DECEL [id number] A Kwyqwklt807.0cm/s MV E Mean Gr.2mmHgE/A Ratio0.7 Pulmonary Valve PV Peak Voqvcbgk74.2cm/sPV Peak Grad.3mmHg Tricuspid Valve TR P. Dyzcmzjb879qf/sRAP BWJGPPFX7uxLh TR Peak Gr.73uoThVNPG28faBr LEFT VENTRICLE The left ventricle is normal size. There is normal left ventricular wall thickness. The left ventricu lar systolic function is normal. The Ejection Fraction is 60-65%. There is normal LV segmental wall m otion. Transmitral Doppler flow pattern is Grade I-abnormal relaxation pattern. RIGHT VENTRICLE The right ventricle is normal size. There is normal right ventricular wall thickness. The right ventr icular systolic function is normal. ATRIA The left atrium size is normal. The right atrium size is normal. The interatrial septum is intact wit h no evidence for an atrial septal defect or patent foramen ovale as noted on 2-D or Doppler imaging. AORTIC VALVE The aortic valve is normal in structure and function. Doppler and Color Flow revealed no significant aortic regurgitation. There is no significant aortic valvular stenosis. Calculated aortic valve area is 2.5 cm2 with maximum pressure gradient of 9 mmHg and mean pressure gradient of 5 mmHg. MITRAL VALVE The mitral valve is normal in structure and function. There is no evidence of mitral valve prolapse. There is no mitral valve stenosis. Doppler and Color Flow revealed no mitral valve regurgitation note d. TRICUSPID VALVE The tricuspid valve is normal in structure and function. Doppler and Color Flow revealed trace tricus pid regurgitation with an estimated PAP of 36 mmHg. There is no tricuspid valve stenosis. PULMONIC VALVE The pulmonic valve is not well visualized. Doppler and Color Flow revealed trace pulmonic valvular re gurgitation. GREAT VESSELS The aortic root is normal in size. The IVC is normal in size and collapses >50% with inspiration. PERICARDIAL EFFUSION There is no evidence of significant pericardial effusion. Critical Notification Critical Value: No <Conclusion> The left ventricular systolic function is normal. The Ejection Fraction is 60-65%. There is normal LV segmental wall motion. Transmitral Doppler flow pattern is Grade I-abnormal relaxation pattern. Trace tricuspid regurgitation with an estimated PAP of 36 mmHg. There is no evidence of significant pericardial effusion. Signed by : Cristiano Newman, Electronically Approved : 09/29/2021 17:50:53
--- NOTE | 2021-09-29 18:10 | RAD ---
MR#: [id number] Date of Study: 09/29/2021 Ordering Physician: EDWINA PLAZA, Referring Physician: EDWINA PLAZA, Tech: Rekha Roy RVT, [facility] APPROVED REPORT Patient Location: OUT-PATIENT Laterality:Bilateral Indications CVA/TIA: Risk Factors Hypertension: TIA/CVA History Smoking Doppler Spectral Velocity Analysis Right Left pCCA 118/24 cm/spCCA 100/28 cm/s mCCA 78/22 cm/smCCA 94/28 cm/s dCCA 87/20 cm/sdCCA 85/24 cm/s ECA 102/18 cm/sECA 122/20 cm/s pICA 71/19 cm/spICA 87/23 cm/s Roosevelt 75/25 cm/smICA 92/29 cm/s dICA 63/22 cm/sdICA 107/29 cm/s Vert. 97/27 cm/sVert. ICA/CCA 0.64ICA/CCA 1.07 Critical Notification Critical Value: No <Conclusion> FINDINGS: Grayscale images of bilateral extracranial carotid vessels showed mild diffuse atherosclerosis. Spec tral waveform and color duplex analysis showed normal velocities in bilateral common, internal and ex ternal carotid arteries consistent with 0 to less than 50% stenosis. The ICA/CCA ratio are within no rmal limits bilaterally. The right vertebral artery showed antegrade flow with normal velocities. T he left vertebral artery showed retrograde flow consistent with patient's known left subclavian arter y occlusion. CONCLUSION: No significant stenosis involving bilateral common and internal carotid arteries. There is retrograd e flow in left vertebral artery consistent with patient's known prior history of left subclavian lyndon ry occlusion. Signed by : Cristiano Newman, Electronically Approved : 09/29/2021 18:10:23
== END ==
LOC: ECHO 12:12
PROVIDERS: ATTEND Internal Medicine Cardiovascular Disease
DX: I67.2 Cerebral atherosclerosis (principal); I63.9 Cerebral infarction, unspecified; I25.10 Atherosclerotic heart disease of native coronary artery without angina pectoris; I10 Essential (primary) hypertension; J44.9 Chronic obstructive pulmonary disease, unspecified; R42 Dizziness and giddiness; Z87.891 Personal history of nicotine dependence
CPT/HCPCS: 93306; 93880

== ENCOUNTER → 2021-12-01 | Outpatient (CLI) | payer MEDICARE ==
[2021-07-01 13:00] VITALS: BP 132/63
--- NOTE | 2021-12-01 16:20 | RAD ---
Bilateral digital screening 2-D and 3-D (digital breast tomosynthesis) mammogram: Reason for examination: Routine screening. Comparison: Mammograms from 04/13/2019, 08/15/2017, 11/26/2015. Interpretation was made with the benefit of CAD. FINDINGS: Breast density: Category A. Breast tissue is almost entirely fatty. No malignant appearing calcifications, or architectural distortion is seen. There is an 8 mm oval cir cumscribed mass in the far posterior medial aspect of right breast, 3:30 position, near the sternum. This was seen on previous MLO view from 2016 and likely represents a sebaceous cyst. It appears sligh tly larger on today's study. No other evidence for breast mass is seen. IMPRESSION: 8 mm mass in the far posterior medial aspect of the right breast. Further evaluation with targeted ri ght breast ultrasound is recommended. May represent a sebaceous cyst. Assessment: BI-RADS 0. Incomplete. Recommendation: Targeted right breast ultrasound. The patient be notified of results and asked to schedule for additional imaging. The patient will rec eive a letter with the results in the mail. Patient information will be entered into the mammography reminder system with a target recall date for the next mammogram. A reminder letter will be generated . Electronically signed by: Chantel Keyes MD (12/01/2021 4:18 PM) [id number]
== END ==
LOC: MAMMO 12:54
PROVIDERS: ATTEND Physician Assistant
DX: Z12.31 Encounter for screening mammogram for malignant neoplasm of breast (principal)
CPT/HCPCS: 77063; 77067

== ENCOUNTER → 2021-12-08 | Outpatient (CLI) | payer MEDICARE ==
[2021-07-01 13:00] VITALS: BP 132/63
--- NOTE | 2021-12-08 14:24 | RAD ---
EXAM: US BREAST LTD RT 12/08/2021 12:56 PM CLINICAL INDICATION: 71-year-old woman recalled from screening mammogram for mass in the far posteri or medial right breast. COMPARISON: February 14, 20152021 and 08/15/2017. Right breast ultrasound 11/26/2015 TECHNIQUE: Grayscale and color Doppler ultrasound images of the right breast was obtained in area of concern FINDINGS: At 3:30 12 cm from the nipple, there is an hypoechoic ovoid mass measuring 0.7 x 0.2 x 0.5 cm. This has a hypoechoic linear tract to the surface of the skin. There is some echogenic material within the tract that may be gas or debris. No vascularity. This is has not significantly changed fro m right breast ultrasound 11/26/2015. IMPRESSION: 7 mm hypoechoic right breast mass at 3:30 12 cm from the nipple with linear tract to the skin, consistent with a benign sebaceous cyst. This has not significant changed from 11/26/2015. The patient can return to screening mammogram, due in 12 months. BI-RADS category 2: Benign. Recommendation: Annual screening mammogram in 12 months. Electronically signed by: Mariel Dyson MD (12/08/2021 2:22 PM) [id number]
== END ==
LOC: US 12:46
PROVIDERS: ATTEND Physician Assistant
DX: N63.14 Unspecified lump in the right breast, lower inner quadrant (principal)
CPT/HCPCS: 76642

== ENCOUNTER → 2021-12-28 | Outpatient (CLI) | payer MEDICARE ==
[2021-07-01 13:00] VITALS: BP 132/63
--- NOTE | 2021-12-28 18:46 | RAD ---
Examination: 2 views of the right forearm, 3 views of the right wrist, 3 views of the right hand HISTORY: History of fall, pain, bruising COMPARISON: None available FINDINGS: There is mild dorsal displaced fracture of the distal radius metadiaphysis. The alignment of the carp al bones grossly appears unremarkable. Moderate to severe joint space loss identified in the first ca rpometacarpal joint likely degenerative changes. The alignment of the metacarpophalangeal joints, int erphalangeal grossly appears unremarkable. The alignment of the IMPRESSION: 1. Mild dorsal displaced fracture of the distal radius metadiaphysis. 2. Moderate to severe degenerative changes first carpometacarpal joint. Electronically signed by: Shemar Peraza MD (12/28/2021 6:43 PM) [id number]
== END ==
LOC: PMG 18:15
PROVIDERS: ATTEND Nurse Practitioner Family
DX: S69.91XA Unspecified injury of right wrist, hand and finger(s), initial encounter (principal); M18.11 Unilateral primary osteoarthritis of first carpometacarpal joint, right hand; S52.591A Other fractures of lower end of right radius, initial encounter for closed fracture; W19.XXXA Unspecified fall, initial encounter; Y93.89 Activity, other specified; Y92.89 Other specified places as the place of occurrence of the external cause; Y99.8 Other external cause status
CPT/HCPCS: 73090; 73110; 73130

== ENCOUNTER → 2022-01-21 | Outpatient (CLI) | payer MEDICARE ==
[2021-07-01 13:00] VITALS: BP 132/63
--- NOTE | 2022-01-21 16:47 | RAD ---
Exam: XR RT WRIST 3VIEWS History: Fracture Comparison: 12/28/2021 Findings: Diffuse decreased osseous mineralization. Redemonstrated comminuted distal radius fracture with intra -articular extension at the radiocarpal joint, apex volar angulation and impaction. Subtle changes leal ggesting early remodeling. Degenerative changes of the triscaphe and first metacarpal phalangeal join t. Impression: 1. Suspected early remodeling at comminuted intra-articular impacted and angulated distal radial met aphyseal fracture. Electronically signed by: López Lo MD (01/21/2022 4:44 PM) [id number]
== END ==
LOC: RAD 10:41
PROVIDERS: ATTEND Orthopaedic Surgery Sports Medicine
DX: S52.571A Other intraarticular fracture of lower end of right radius, initial encounter for closed fracture (principal); M19.031 Primary osteoarthritis, right wrist; X58.XXXA Exposure to other specified factors, initial encounter; Y93.89 Activity, other specified; Y92.89 Other specified places as the place of occurrence of the external cause; Y99.8 Other external cause status
CPT/HCPCS: 73110

== ENCOUNTER → 2022-03-11 | Outpatient (CLI) | payer MEDICARE ==
[2021-07-01 13:00] VITALS: BP 132/63
--- NOTE | 2022-03-11 15:04 | RAD ---
XR RT WRIST 3VIEWS History: Reason: S/P F/U RT WRIST FX / Spl. Instructions: / History: Technique: 3 views right wrist Comparison: January 21, 2022 Findings: Comminuted intra-articular impacted distal radius fracture with increased sclerosis and callus format ion. Dorsal angulation, unchanged. Displaced ulnar styloid fracture. Moderate first carpal metacarpal triscaphe DJD. Impression: 1. Healing comminuted impacted distal radius fracture. Electronically signed by: Etienne Flores DO (03/11/2022 3:02 PM) [id number]
== END ==
LOC: RAD 14:15
PROVIDERS: ATTEND Orthopaedic Surgery Sports Medicine
DX: S52.501D Unspecified fracture of the lower end of right radius, subsequent encounter for closed fracture with routine healing (principal); S52.611A Displaced fracture of right ulna styloid process, initial encounter for closed fracture; M19.031 Primary osteoarthritis, right wrist; X58.XXXD Exposure to other specified factors, subsequent encounter; X58.XXXA Exposure to other specified factors, initial encounter; Y93.89 Activity, other specified; Y92.89 Other specified places as the place of occurrence of the external cause; Y99.8 Other external cause status
CPT/HCPCS: 73110